=== PATIENT | female | born 1955 | race Caucasian/White ===

== ENCOUNTER 2017-03-04 16:28 | Emergency (ER) | payer BC, OTHER ==
[~2017-03-04] VITALS: Ht 162.6 cm; Wt 86.2 kg
[2017-03-04] MEDS ORDERED: CELE50CA PO (17:04)
[2017-03-04] MEDS ORDERED: HYDR-3454 PO (17:04)
[2017-03-04] MEDS ORDERED: TRAZ100T92 PO (17:04)
[2017-03-04] MEDS ORDERED: ZOLP10TA PO (17:04)
[2017-03-04] MEDS ORDERED: ESTROGEN (17:05)
--- NOTE | 2017-03-04 17:45 | Diagnostic Imaging Report ---
EXAMINATION: Left knee at 5:37 p.m. INDICATION: Knee pain. Three views were obtained. There are no prior studies available for comparison. FINDINGS: There is no fracture, dislocation or acute bony abnormality evident. The knee joint is fairly well maintained. The soft tissues are unremarkable. There may be a small joint effusion present, however. IMPRESSION: There is no evidence for an acute bony abnormality. Dictated by: Dictated on workstation # [id number]
--- NOTE | 2017-03-04 17:59 | ED Lower Extremity ---
General Chief Complaint: Lower Extremity Stated Complaint: LEFT KNEE INJ Nursing Triage Note: TO ROOM 05 WITH COMPLAINTS OF LEFT KNEE PAIN. STATES IT BEGAN HURTING SEVERAL DAYS AGO BUT STATES SHE STEPPED UP INTO HER TRUCK AND FELT SHOOTING PAING IN HER LEFT KNEE. Nursing Sepsis Screen: No Definite Risk History of Present Illness Time seen by provider: 17:30 Initial Comments 61-year-old female reports that she has had a 2-3 day history of left knee pain. She was stepping up onto her running board with her left leg when she had extreme pain in the left knee. She denies any previous history of trauma to her left knee. She took 2 Vicodin 5/325 mg tablets prior to arrival. He continues to report that her pain is an 8/10. 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 Onset: just prior to arrival Pain/Injury Location: left knee Method of Injury: unknown Allergies and Home Medications Allergies Coded Allergies: No Known Drug Allergies (Unverified , 03/04/17) Home Medications Celecoxib 50 Mg Capsule, 50 MG PO PRN, (Reported) Hydrocodone/Acetaminophen 1 Each Tablet, 1 EACH PO, (Reported) Trazodone HCl 100 Mg Tablet, 100 MG PO PRN, (Reported) Zolpidem Tartrate 10 Mg Tablet, 10 MG PO HS, (Reported) [Estrogen] , (Reported) Constitutional: no symptoms reported, see HPI Musculoskeletal: see HPI, joint pain Past Qlffble-Tiigjs-Arojvf Hx Patient Social History Alcohol Use: Occasionally Uses Recreational Drug Use: No Smoking Status: Current Everyday Smoker Recent Foreign Travel: No Contact w/Someone Who Travel: No Recent Infectious Disease Expo: No Surgeries History of Surgeries: Yes Surgeries: Gallbladder, Hysterectomy, Tonsillectomy Cardiovascular History of Cardiac Disorders: No Neurological History of Neurological Disord: No Genitourinary History of Genitourinary Disor: No Gastrointestinal History of Gastrointestinal Di: No Musculoskeletal History of Musculoskeletal Dis: No Endocrine History of Endocrine Disorders: No HEENT History of HEENT Disorders: No Cancer History of Cancer: No Psychosocial History of Psychiatric Problem: Yes (INSOMNIA) Behavioral Health Disorders: Depression Integumentary History of Skin or Integumenta: No Physical Exam Vital Signs Vital Sign - Last 12Hours 03/04/17 16:56 Temp 98.0 Pulse 86 Resp 18 B/P (MAP) 155/90 Pulse Ox 96 Capillary Refill : Less Than 3 Seconds General Appearance: WD/WN, no apparent distress Cardiovascular: normal peripheral pulses, regular rate, rhythm Respiratory: chest non-tender, lungs clear, normal breath sounds Knees: left knee bone tenderness (medial joint line), left knee joint effusion (small), left knee pain, left knee soft tissue tenderness, left knee swelling, left knee other (range of motion from 0-60. Exam is extremely limited, as the patient has an exaggerated pain response to any attempted testing. Exam was completed after the x-rays were obtained which showed no fracture or dislocation. No medial or lateral instability. Nia showed trace laxity the patient unable to relax for a good exam.) Neurologic/Psychiatric: no motor/sensory deficits, alert, normal mood/affect, oriented x 3 Progress/Results/Core Measures Results/Orders My Orders Orders - ANN GREENBERG Knee, Left, 3 Views (03/04/17 16:49) Ketorolac Injection (Toradol Injection) (03/04/17 18:15) Vital Signs/I&O Vital Sign - Last 12Hours 03/04/17 03/04/17 16:56 18:55 Temp 98.0 Pulse 86 78 Resp 18 18 B/P (MAP) 155/90 Pulse Ox 96 98 Blood Pressure Mean: 111 Progress Note : Time: 17:30 Progress Note Initial evaluation completed, recommended x-rays of the left knee and examination after these have been completed. Ice applied to the left knee. 1814 patient continues to have significant pain in the left knee, recommended Toradol 60 milligrams IM. 183 knee immobilizer placed on left lower extremity. She reports trace improvement in her symptoms since applying the brace. 1844 discharge planning reviewed with the patient, all questions answered. Diagnostic Imaging Diagonstic Imaging: Xray Plain Films/CT/US/NM/MRI: knee Comments NAME: LUCY WALTERS REC#: [id number] PT STATUS: REG ER : 1955 PHYSICIAN: ANN GREENBERG ADMIT DATE: 03/04/17/ER Draft Date of Exam:03/04/17 KNEE, LEFT, 3 VIEWS EXAMINATION: Left knee at 5:37 p.m. INDICATION: Knee pain. Three views were obtained. There are no prior studies available for comparison. FINDINGS: There is no fracture, dislocation or acute bony abnormality evident. The knee joint is fairly well maintained. The soft tissues are unremarkable. There may be a small joint effusion present, however. IMPRESSION: There is no evidence for an acute bony abnormality. Dictated on workstation # [id number] Dict: 03/04/17 1737 Trans: 03/04/[address] [facility] [id number] Interpreted by: MONA ROMERO MD Electronically signed by: Reviewed: Reviewed by Me Departure Impression Impression: Primary Impression: Left knee pain Qualified Codes: M25.562 - Pain in left knee Disposition: HOME, SELF-CARE Condition: Stable Departure-Patient Inst. Decision time for Depature: 17:50 Referrals: NO,LOCAL PHYSICIAN (PCP) Primary Care Physician Patient Instructions: Knee Sprain (DC) Add. Discharge Instructions: Use knee immobilizer when ambulating. Ice to left knee 20 min every 2 hours. Range of motion exercises and straight leg raises 10 times, every 4 hours while awake. Crutches for ambulation, weight bearing as tolerated left knee. Return to emergency department for increased pain, new injury or problems. Ibuprofen 600 mg alternating with Tylenol 650 mg every 4 hours for pain. Upon returning to [place], see primary care provider for referral to orthopedics. All discharge instructions reviewed with patient and/or family. Voiced understanding. ANN GREENBERG Mar 04, 2017 17:59
[2017-03-04] MEDS ORDERED: KETOROLAC 60 MG/2 ML VIAL IM STA (18:15)
[2017-03-04 18:55] VITALS: BP 136/90
== END 2017-03-04 18:55 | disposition home or self-care (01) ==
LOC: EDSEX 16:32 → ER 16:32
DX: M25.562 Pain in left knee (principal); F32.9 Major depressive disorder, single episode, unspecified; G47.00 Insomnia, unspecified; F17.200 Nicotine dependence, unspecified, uncomplicated; Z90.710 Acquired absence of both cervix and uterus; Z90.89 Acquired absence of other organs; W22.8XXA Striking against or struck by other objects, initial encounter
CPT/HCPCS: 73562; 96372; 99284